=== PATIENT | female | born 1980 | race Caucasian/White ===

== ENCOUNTER 2017-09-09 07:57 | Day surgery (SDC) | payer MEDICAID ==
[~2017-09-09] VITALS: Ht 162.6 cm; Wt 61.2 kg
[~2017-09-09 07:57] MED LIST: IODIXANOL 320MG/ML 100ML BTL IV ONE; LAMO200T2 PO; LIDOCAINE 2%HCL (LOCAL ANESTH.) INJ 20ML MDV ONE; MACI1TAB2 PO; SILD20TA PO
[2017-09-09] MEDS ORDERED: diphenhdrAMINE HCL 50 MG/1 ML VL ONE (08:50)
[2017-09-09] MEDS ORDERED: methylPREDNISolone SOD SUCC 125 MG/2 ML VL ONE (08:50)
[2017-09-09] MEDS ORDERED: fentaNYL CITRATE 100 MCG/2 ML VL ONE (08:51)
[2017-09-09] MEDS ORDERED: MIDAZOLAM HCL 1MG/1ML-2 ML VIAL ONE (08:51)
[2017-09-09] MEDS ORDERED: FAMOTIDINE (10MG/ML) 2ML VL IV ONE (08:59)
[2017-09-09] MEDS ORDERED: ANGIOMAX 250 MG VIAL IV ONE (09:07)
== END 2017-09-09 11:45 | disposition home or self-care (01) ==
LOC: CATH 07:57
PROVIDERS: ATTEND Internal Medicine Cardiovascular Disease
DX: I25.10 Atherosclerotic heart disease of native coronary artery without angina pectoris (principal); I27.20 Pulmonary hypertension, unspecified; Z88.2 Allergy status to sulfonamides; Z91.013 Allergy to seafood; E66.9 Obesity, unspecified; Z68.23 Body mass index [BMI] 23.0-23.9, adult; Z88.0 Allergy status to penicillin; Z88.5 Allergy status to narcotic agent; I10 Essential (primary) hypertension; R56.9 Unspecified convulsions; G80.9 Cerebral palsy, unspecified
CPT/HCPCS: 93460; C1760; C1769; C1894; J1200; J1644; J2930; J3010; J7030; 99152; J2250; J3490; Q9967